=== PATIENT | female | born 1975 | race American Indian/Alaskan Native ===

== ENCOUNTER 2017-12-04 13:24 | Emergency (ER) | payer SELFPAY ==
--- NOTE | 2017-12-04 14:30 | Emergency Department Report ---
ED Psych HPI - General Chief Complaint: Psych Stated Complaint: 1013 Time Seen by Provider: 12/04/17 14:16 Source: patient, EMS Mode of arrival: Stretcher Limitations: No Limitations - History of Present Illness Initial Comments: Patient was brought to the emergency room by the police on 1012. According to police reports patient is unable to care for self. Patient says she is related to and from cocaine and amphetamine. She says she's been doing cocaine but she denies suicidal or homicidal ideation. -: Sudden Associated Psychiatric Symptoms: racing thoughts, delusions History of same: Yes Quality: constant Improves With: none Worsens With: none Context: recent drug abuse, significant life stressor Associated Symptoms: denies other symptoms Treatments Prior to Arrival: none - Related Data Previous Rx's Medication Instructions Recorded Last Taken Type Quetiapine Fumarate [Seroquel XR] 50 mg PO QDAY #30 tab.er.24h 11/16/13 Unknown Rx Venlafaxine [Effexor] 37.5 mg PO QDAY #30 tab 11/16/13 Unknown Rx Allergies Allergy/AdvReac Type Severity Reaction Status Date / Time No Known Allergies Allergy Verified 12/04/17 14:01 ED Review of Systems ROS: Stated complaint: 101 Other details as noted in HPI Comment: All other systems reviewed and negative Constitutional: denies: chills, fever Eyes: denies: eye pain, eye discharge ENT: denies: ear pain, dental pain Respiratory: denies: cough, shortness of breath Cardiovascular: denies: chest pain, palpitations, dyspnea on exertion Endocrine: no symptoms reported Gastrointestinal: denies: abdominal pain, nausea, vomiting, diarrhea Genitourinary: denies: urgency, dysuria, frequency Musculoskeletal: denies: back pain, joint swelling Skin: denies: rash, lesions Neurological: denies: headache, weakness, numbness Psychiatric: denies: anxiety, depression Hematological/Lymphatic: denies: easy bleeding, easy bruising ED Past Medical Hx - Past Medical History Previous Medical History?: Yes Hx Hypertension: Yes Additional medical history: ETOH and cocaine abuse - Surgical History Past Surgical History?: Yes Additional Surgical History: c-sectionsx4 - Social History Smoking Status: Current Every Day Smoker Substance Use Type: Alcohol, Heroin, Prescribed - Medications Home Medications: Home Medications Medication Instructions Recorded Confirmed Last Taken Type Quetiapine Fumarate [Seroquel XR] 50 mg PO QDAY #30 tab.er.24h 11/16/13 Unknown Rx Venlafaxine [Effexor] 37.5 mg PO QDAY #30 tab 11/16/13 Unknown Rx ED Physical Exam - General Limitations: No Limitations General appearance: alert, in no apparent distress - Head Head exam: Present: atraumatic, normocephalic, normal inspection - Eye Eye exam: Present: normal appearance, PERRL, EOMI Pupils: Present: normal accommodation - ENT ENT exam: Present: normal exam, normal orophraynx, mucous membranes moist - Neck Neck exam: Present: normal inspection, full ROM. Absent: tenderness - Respiratory Respiratory exam: Present: normal lung sounds bilaterally. Absent: respiratory distress, wheezes, rales, rhonchi, stridor - Cardiovascular Cardiovascular Exam: Present: regular rate, normal rhythm, normal heart sounds - GI/Abdominal GI/Abdominal exam: Present: soft, normal bowel sounds. Absent: distended, tenderness, guarding, rebound - Extremities Exam Extremities exam: Present: normal inspection, full ROM, normal capillary refill - Back Exam Back exam: Present: normal inspection, full ROM. Absent: tenderness - Neurological Exam Neurological exam: Present: alert, oriented X3, CN II-XII intact - Psychiatric Psychiatric exam: Present: normal affect, normal mood - Skin Skin exam: Present: warm, dry, intact, normal color. Absent: rash ED Course Vital Signs 12/04/17 12/04/17 12/04/17 13:26 14:16 14:30 Temperature 98.5 F Pulse Rate 107 H Respiratory 24 18 15 Rate Blood Pressure 129/66 O2 Sat by Pulse 97 99 100 Oximetry 12/04/17 12/04/17 12/04/17 14:46 15:00 15:16 Temperature Pulse Rate Respiratory 14 15 12 Rate Blood Pressure O2 Sat by Pulse 100 Oximetry 12/04/17 12/04/17 12/04/17 15:30 16:44 16:54 Temperature Pulse Rate Respiratory 16 Rate Blood Pressure O2 Sat by Pulse 61 L 81 L Oximetry 12/04/17 12/04/17 12/04/17 18:06 18:16 18:30 Temperature Pulse Rate Respiratory Rate Blood Pressure 146/127 146/127 O2 Sat by Pulse 70 L 76 L Oximetry 12/04/17 12/04/17 12/04/17 18:46 19:01 19:15 Temperature Pulse Rate Respiratory Rate Blood Pressure 220/135 175/113 179/103 O2 Sat by Pulse Oximetry 12/04/17 12/04/17 12/04/17 19:31 19:46 20:00 Temperature Pulse Rate Respiratory Rate Blood Pressure 221/131 175/117 184/111 O2 Sat by Pulse Oximetry 12/04/17 20:16 Temperature Pulse Rate Respiratory Rate Blood Pressure 192/115 O2 Sat by Pulse Oximetry - Reevaluation(s) Reevaluation #1: 12/04/17 16:07 12/04/17 16:20 I discussed patient care with the hospitalist target protection specialist Dr Cheng. He will admit patient for further evaluation and management. ED Medical Decision Making - Lab Data Result diagrams: 12/04/17 14:40 12/04/17 14:40 - Radiology Data Radiology results: report reviewed - Medical Decision Making Drug Abuse. Critical care attestation.: If time is entered above; I have spent that time in minutes in the direct care of this critically ill patient, excluding procedure time. ED Disposition Clinical Impression: Drug abuse, Cocaine abuse, ASAF (acute kidney injury) Rhabdomyolysis Qualifiers: Rhabdomyolysis type: non-traumatic Qualified Code(s): M62.82 - Rhabdomyolysis Disposition: 09 OP ADMIT IP TO THIS HOSP Is pt being admited?: No Does the pt Need Aspirin: No Condition: Stable Referrals: PRIMARY CARE, [Primary Care Provider] - 3-5 Days Time of Disposition: 16:07
[2017-12-04] MEDS ORDERED: NACL 0.9% 1000 ML 1,000 ML IV ONE ×3 (14:36→16:15)
[2017-12-04 15:00] LABS: Basophils % (Auto) 0.5 % (0.0-1.8); Eosinophils # (Auto) 0.1 K/mm3 (0.0-0.4); Eosinophils % (Auto) 1.4 % (0.0-4.3); Hematocrit 28.6 % (30.3-42.9); Hemoglobin 9.2 gm/dl (10.1-14.3); Lymphocytes # (Auto) 1.5 K/mm3 (1.2-5.4); Lymphocytes % (Auto) 20.4 % (13.4-35.0); Mean Corpuscular HGB Conc 32 % (30-34); Mean Corpuscular Hemoglobin 24 pg (28-32); Mean Corpuscular Volume 76 fl (79-97); Monocytes # (Auto) 0.7 K/mm3 (0.0-0.8); Platelet Count 379 K/mm3 (140-440); Red Blood Count 3.78 M/mm3 (3.65-5.03); Red Cell Distribution Width 18.6 % (13.2-15.2)
[2017-12-04 15:24] LABS: Calcium 9.2 mg/dL (8.4-10.2)
[2017-12-04 16:03] LABS: Bilirubin,Urine NEG (Negative); Blood,Urine SM (Negative); Color,Urine Yellow (Yellow)
[2017-12-04 16:10] LABS: Amphetamine Screen,Urine PRESUMPTIVE NEGATIVE; Benzodiazepines Screen,Urine PRESUMPTIVE NEGATIVE; Cannabinoid Screen,Urine PRESUMPTIVE NEGATIVE; Methadone Screen,Urine PRESUMPTIVE NEGATIVE; Opiate Screen,Urine PRESUMPTIVE NEGATIVE
[2017-12-04] MEDS ORDERED: K-DUR PO ONE (16:14)
[2017-12-04 16:22] LABS: Cocaine Screen,Urine PRESUMPTIVE POSITIVE
--- NOTE | 2017-12-04 16:26 | History and Physical Report ---
History of Present Illness History of present illness: D/C 1013 Medications and Allergies Allergies Allergy/AdvReac Type Severity Reaction Status Date / Time No Known Allergies Allergy Verified 12/04/17 14:01 Home Medications Medication Instructions Recorded Confirmed Last Taken Type Quetiapine Fumarate [Seroquel XR] 50 mg PO QDAY #30 tab.er.24h 11/16/13 Unknown Rx Venlafaxine [Effexor] 37.5 mg PO QDAY #30 tab 11/16/13 Unknown Rx Active Meds: Active Medications Sodium Chloride (Nacl 0.9% 1000 Ml) 1,000 mls @ 999 mls/hr IV BOLUS ONE Stop: 12/04/17 17:15 Potassium Chloride (K-Dur) 10 meq PO ONCE ONE Stop: 12/04/17 16:15 Exam - Constitutional Vitals: Temp Pulse Resp BP Pulse Ox 98.5 F 107 H 24 129/66 97 12/04/17 13:26 12/04/17 13:26 12/04/17 13:26 12/04/17 13:26 12/04/17 13:26 Results - Labs CBC & Chem 7: 12/04/17 14:40 12/04/17 14:40 Labs: Abnormal lab results 12/04/17 12/04/17 12/04/17 Range/Units 14:40 14:40 14:40 Hgb (10.1-14.3) gm/dl Hct (30.3-42.9) % MCV (79-97) fl MCH (28-32) pg RDW (13.2-15.2) % [place] % (Auto) (0.0-7.3) % Potassium 3.1 L (3.6-5.0) mmol/L Carbon Dioxide 21 L (22-30) mmol/L Creatinine 1.6 H (0.7-1.2) mg/dL Total Creatine Kinase (30-135) units/L U Epithel Cells (Auto) (0-13.0) /HPF Salicylates < 0.3 L (2.8-20.0) mg/dL Acetaminophen < 5.0 L (10.0-30.0) ug/mL 12/04/17 12/04/17 12/04/17 Range/Units 14:40 14:40 Unknown Hgb 9.2 L (10.1-14.3) gm/dl Hct 28.6 L (30.3-42.9) % MCV 76 L (79-97) fl MCH 24 L (28-32) pg RDW 18.6 H (13.2-15.2) % [place] % (Auto) 10.0 H (0.0-7.3) % Potassium (3.6-5.0) mmol/L Carbon Dioxide (22-30) mmol/L Creatinine (0.7-1.2) mg/dL Total Creatine Kinase 3600 H (30-135) units/L U Epithel Cells (Auto) 16.0 H (0-13.0) /HPF Salicylates (2.8-20.0) mg/dL Acetaminophen (10.0-30.0) ug/mL
[2017-12-04] MEDS ORDERED: PROVENTIL IH PRN (16:27)
[2017-12-04] MEDS ORDERED: SODIUM CHLORIDE FLUSH SYRINGE 10 ML IV PRN (16:27)
[2017-12-04] MEDS ORDERED: TYLENOL PO PRN (16:27)
[2017-12-04] MEDS ORDERED: ZOFRAN IV PRN (16:27)
[2017-12-04] MEDS ORDERED: SODIUM BICARBONATE IV ONE ×2 (16:29→17:00)
[2017-12-04 20:25] VITALS: BP 192/115
[2017-12-04] MEDS ORDERED: SODIUM CHLORIDE FLUSH SYRINGE 10 ML IV SCH (22:00)
[2017-12-05] MEDS ORDERED: EFFEXOR PO SCH (10:00)
[2017-12-05] MEDS ORDERED: NON-FORMULARY (Quetiapine Fumarate [Seroquel Xr] 50 MG) PO SCH (10:00)
== END 2017-12-04 20:50 | disposition admitted as inpatient to this hospital (09) ==
LOC: EEVIPCON 13:24 → ED 13:24 → 3A 16:27 → UNDOADMIN 16:27
DX: N17.9 Acute kidney failure, unspecified (principal); F14.10 Cocaine abuse, uncomplicated; M62.82 Rhabdomyolysis; I10 Essential (primary) hypertension; F17.200 Nicotine dependence, unspecified, uncomplicated; Z79.899 Other long term (current) drug therapy
CPT/HCPCS: 36415; 80048; 80307; 81001; 82550; 84703; 85025; 96361; 96374; 99285; G0480; J7030; 80320

== ENCOUNTER 2019-03-29 18:27 | Emergency (ER) | payer SELFPAY ==
[2019-03-29] MEDS ORDERED: IBUPROFEN 600 MG TAB PO ONE ×2 (19:45→19:51)
[2019-03-29 19:49] VITALS: BP 172/112
--- NOTE | 2019-03-29 20:43 | XRay Report ---
RIGHT ANKLE 3 VIEWS INDICATION / CLINICAL INFORMATION: Fell down stairs with right ankle pain and swelling. COMPARISON: None available. FINDINGS: BONES / JOINT(S): No acute fracture or subluxation. No significant arthritis. SOFT TISSUES: There is mild soft tissue swelling, more prominent overlying the lateral malleolus. ADDITIONAL FINDINGS: None. IMPRESSION: Mild soft tissue swelling without acute osseous abnormality. Signer Name: Darron Burns MD Signed: 03/29/2019 8:39 PM Workstation Name: [id number]
--- NOTE | 2019-03-29 20:44 | XRay Report ---
RIGHT FOOT 3 VIEWS INDICATION / CLINICAL INFORMATION: pain/swelling right ankle r/t fall down stairs. COMPARISON: None available. FINDINGS: No fracture or other significant abnormality. Signer Name: Antwan Crisostomo MD Signed: 03/29/2019 8:40 PM Workstation Name: [id number]
--- NOTE | 2019-03-29 21:49 | Emergency Department Report ---
ED Lower Extremity HPI - General Chief Complaint: Extremity Injury, Lower Stated Complaint: RT ANKLE INJURY Time Seen by Provider: 03/29/19 21:36 Source: patient Mode of arrival: Ambulatory Limitations: No Limitations - History of Present Illness Initial Comments: This is a 44-year-old female nontoxic, well nourished in appearance, no acute signs of distress presents to the ED with c/o of right ankle pain 1 day. Patient stated that she twisted her ankle while tripped on the stairs. Patient denies any other trauma. Patient denies any numbness, tingling, fever, chills, nausea, vomiting, chest pain, shortness of breath, headache, stiff neck. Patient denies any joint swelling or joint redness. Patient denies decreased range of motion. Patient stated has decreased gait due to pain. Patient denies any allergies. Patient does have history of hypertension but stated she is not taking her Norvasc or HCTZ as she does not have any refills. MD Complaint: ankle injury -: days(s) Injury: Ankle: Right Type of Injury: inversion Severity: mild Severity scale (0 -10): 8 Improves With: immobilization Worsens With: weight bearing, movement, palpation Associated Symptoms: swelling, able to partially bear weight, ambulatory. denies: snap/pop sensation, numbness, tingling, unable to bear weight - Related Data Previous Rx's Medication Instructions Recorded Last Taken Type Quetiapine Fumarate [Seroquel XR] 50 mg PO QDAY #30 tab.er.24h 11/16/13 Unknown Rx Venlafaxine [Effexor] 37.5 mg PO QDAY #30 tab 11/16/13 Unknown Rx Acetaminophen/Codeine [Tylenol 1 tab PO Q6H PRN #12 tab 03/29/19 Unknown Rx /Codeine # 3 tab] amLODIPine 10 mg PO DAILY #30 tab 03/29/19 Unknown Rx hydroCHLOROthiazide [HCTZ] 25 mg PO QDAY #30 tablet 03/29/19 Unknown Rx Allergies Allergy/AdvReac Type Severity Reaction Status Date / Time No Known Allergies Allergy Verified 12/04/17 14:01 ED Review of Systems ROS: Stated complaint: RT ANKLE INJURY Other details as noted in HPI Constitutional: denies: chills, fever Eyes: denies: eye pain, eye discharge, vision change ENT: denies: ear pain, throat pain Respiratory: denies: cough, shortness of breath, wheezing Cardiovascular: denies: chest pain, palpitations Endocrine: no symptoms reported Gastrointestinal: denies: abdominal pain, nausea, diarrhea Genitourinary: denies: urgency, dysuria, discharge Musculoskeletal: arthralgia. denies: back pain, joint swelling Skin: denies: rash, lesions Neurological: denies: headache, weakness, paresthesias Psychiatric: denies: anxiety, depression Hematological/Lymphatic: denies: easy bleeding, easy bruising ED Past Medical Hx - Past Medical History Previous Medical History?: Yes Hx Hypertension: Yes Additional medical history: ETOH and cocaine abuse - Surgical History Past Surgical History?: Yes Additional Surgical History: c-sectionsx4 - Social History Smoking Status: Current Every Day Smoker Substance Use Type: Alcohol, Cocaine, Other - Medications Home Medications: Home Medications Medication Instructions Recorded Confirmed Last Taken Type Quetiapine Fumarate [Seroquel XR] 50 mg PO QDAY #30 tab.er.24h 11/16/13 Unknown Rx Venlafaxine [Effexor] 37.5 mg PO QDAY #30 tab 11/16/13 Unknown Rx Acetaminophen/Codeine [Tylenol 1 tab PO Q6H PRN #12 tab 03/29/19 Unknown Rx /Codeine # 3 tab] amLODIPine 10 mg PO DAILY #30 tab 03/29/19 Unknown Rx hydroCHLOROthiazide [HCTZ] 25 mg PO QDAY #30 tablet 03/29/19 Unknown Rx ED Physical Exam - General Limitations: No Limitations General appearance: alert, in no apparent distress - Head Head exam: Present: atraumatic, normocephalic - Extremities Exam Extremities exam: Present: normal inspection, full ROM, tenderness, normal capillary refill. Absent: joint swelling, calf tenderness - Expanded Lower Extremity Exam Right Hip exam: Present: normal inspection, full ROM. Absent: tenderness, swelling Upper Leg exam: Present: normal inspection, full ROM. Absent: tenderness, swelling Knee exam: Present: normal inspection, full ROM. Absent: tenderness, swelling Lower Leg exam: Present: normal inspection, full ROM. Absent: tenderness, swelling Ankle exam: Present: normal inspection, full ROM, tenderness, swelling, ecchymosis. Absent: abrasion, laceration, deformity, crepidus, dislocation, erythema, anterior draw sign Foot/Toe exam: Present: normal inspection, full ROM. Absent: tenderness, swelling Neuro vascular tendon exam: Present: no vascular compromise Gait: Positive: observed and limited by pain - Back Exam Back exam: Present: normal inspection, full ROM. Absent: tenderness, CVA tenderness (R), CVA tenderness (L), muscle spasm, paraspinal tenderness, vertebral tenderness, rash noted - Neurological Exam Neurological exam: Present: alert, oriented X3 - Psychiatric Psychiatric exam: Present: normal affect, normal mood ED Course Vital Signs 03/29/19 03/29/19 19:46 19:52 Temperature 98.9 F Pulse Rate 84 Respiratory 18 18 Rate Blood Pressure 172/112 O2 Sat by Pulse 98 Oximetry - Reevaluation(s) Reevaluation #1: 03/29/19 21:49 Patient is speaking in full sentences with no signs of distress noted. ED Lower Extremity MDM - Medical Decision Making This is a 44-year-old female that presents with right ankle sprain. Patient is stable and was examined by me. I referred patient to an orthopedic doctor for further evaluation for possible MRI. X-ray has been obtained and dictated by the radiologist. Patient is notified of the x-ray report with noted by the patient. Patient does have normal gait with no tenderness and no joint swelling. No ecchymosis. no joint redness or swelling. Not warm to touch. No signs of cellulites present. Patient received a ankle stirrup and crutches and was educated by our and how to use crutches. Patient was instructed to RICE therapy. Patient received Motrin for pain. Patient is discharged with Tylenol with codeine and was instructed not to operate any machinery while taking this as a cause drowsiness. At time of discharge, the patient does not seem toxic or ill in appearance. No acute signs of distress noted. Patient agrees to discharge treatment plan of care. No further questions noted by the patient. I will refill patients blood pressure medications. Stated takes HCTZ 25 mg daily and Norvasc 10 mg daily. As ACEP guidelines, In ED patients with asymptomatic markedly elevated blood pressure, routine screening for acute target organ injury (eg, serum creatinine, urinalysis, ECG) is not required. In patients with asymptomatic markedly elevated blood pressure, routine ED medical intervention is not required. Critical care attestation.: If time is entered above; I have spent that time in minutes in the direct care of this critically ill patient, excluding procedure time. ED Disposition Clinical Impression: Right ankle sprain Qualifiers: Encounter type: initial encounter Involved ligament of ankle: unspecified ligament Qualified Code(s): S93.401A - Sprain of unspecified ligament of right ankle, initial encounter HTN (hypertension) Qualifiers: Hypertension type: unspecified Qualified Code(s): I10 - Essential (primary) hypertension Disposition: TO HOME OR SELFCARE Is pt being admited?: No Does the pt Need Aspirin: No Condition: Stable Instructions: Ankle Sprain (ED), Crutch Instructions (ED), Ankle Stirrup Splint (ED), Hypertension (ED) Additional Instructions: Follow-up with orthopedic doctor in 3-5 days or if symptoms worsen and continue return to emergency room as soon as possible. Prescriptions: amLODIPine 10 mg PO DAILY #30 tab hydroCHLOROthiazide [HCTZ] 25 mg PO QDAY #30 tablet Acetaminophen/Codeine [Tylenol /Codeine # 3 tab] 1 tab PO Q6H PRN #12 tab PRN Reason: Pain , Severe (7-10) Referrals: LEODAN MIKE MD [Primary Care Provider] - 3-5 Days PRIMARY CAREMD [Referring] - 3-5 Days ROLLY LOZA MD [Staff Physician] - 3-5 Days [facility] [Outside] - 3-5 Days Forms: Work/School Release Form(ED)
== END 2019-03-29 22:36 | disposition home or self-care (01) ==
LOC: ED 18:27
DX: S93.401A Sprain of unspecified ligament of right ankle, initial encounter (principal); F17.200 Nicotine dependence, unspecified, uncomplicated; F14.10 Cocaine abuse, uncomplicated; I10 Essential (primary) hypertension; Z79.899 Other long term (current) drug therapy; Z98.890 Other specified postprocedural states; W18.40XA Slipping, tripping and stumbling without falling, unspecified, initial encounter; Y93.89 Activity, other specified; Y92.89 Other specified places as the place of occurrence of the external cause; Y99.8 Other external cause status